=== PATIENT | male | born 1955 | race Caucasian/White ===

== ENCOUNTER 2016-10-10 09:05 | Day surgery (SDC) | payer MEDICAID ==
[~2016-10-10] VITALS: Ht 152.4 cm; Wt 73.5 kg
[~2016-10-10 09:05] MED LIST: BALANCED SALT IRRIG SOLN COMB1 500ML OP ONE
[2016-10-10] MEDS ORDERED: HYALURONATE SODIUM 14 MG/ML 0.85ML SYRINGE IO ONE ×2 (10:05→14:16)
[2016-10-10 10:29] LABS: CALCIUM 8.6 mg/dL (8.5-10.1)
[2016-10-10] MEDS ORDERED: SODIUM CHLORIDE 0.9% 1,000 ML IV SCH ×2 (10:45→14:12)
[2016-10-10] MEDS ORDERED: CYCLOPENTOLATE HCL 1% OPHTH DROPS 2ML RIGHTEYE ONE (11:20)
[2016-10-10] MEDS ORDERED: PHENYLEPHRINE HCL 10% OPHTH DROPS 5ML RIGHTEYE ONE (11:20)
[2016-10-10] MEDS ORDERED: TROPICAMIDE 1% OPHTH DROPS 15ML RIGHTEYE ONE (11:20)
[2016-10-10] MEDS ORDERED: METF10002 PO (11:57)
[2016-10-10] MEDS ORDERED: HYDR25TA PO (11:57)
[2016-10-10] MEDS ORDERED: ASPI-1035 PO (11:57)
[2016-10-10] MEDS ORDERED: FURO-152 PO (11:57)
[2016-10-10] MEDS ORDERED: GEMF600T3 PO (11:57)
[2016-10-10] MEDS ORDERED: INSLAN SQ (11:57)
[2016-10-10] MEDS ORDERED: LIDOCAINE HCL/PF 2% 20 MG/ML 10ML VIAL ONE (12:59)
[2016-10-10] MEDS ORDERED: PREDNISOLONE ACETATE 1% OPHTH DROPS 1ML ONE (12:59)
[2016-10-10] MEDS ORDERED: CIPROFLOXACIN 0.3% OPHTH SOLN 2.5ML ONE (12:59)
[2016-10-10] MEDS ORDERED: MIDAZOLAM HCL 2 MG/2 ML VIAL ONE (13:56)
[2016-10-10] MEDS ORDERED: FENTANYL CITRATE/PF 50MCG/ML 2ML VIAL ONE (13:57)
[2016-10-10] MEDS ORDERED: PROPOFOL 200MG/20ML VIAL IV ONE (13:58)
[2016-10-10] MEDS ORDERED: LIDOCAINE HCL 1% 20ML VIAL (Pyxis) INJ ONE (13:58)
[2016-10-10] MEDS ORDERED: ONDANSETRON HCL 4MG/2ML VIAL ONE (14:05)
[2016-10-10] MEDS ORDERED: MORPHINE SULFATE 2 MG/ML CPJ (NOT FOR IM USE) IV PRN (14:15)
[2016-10-10] MEDS ORDERED: ONDANSETRON HCL 4MG/2ML VIAL IV PRN (14:15)
== END 2016-10-10 15:45 | disposition home or self-care (01) ==
LOC: OR 09:05
PROVIDERS: ATTEND Ophthalmology
DX: H25.9 Unspecified age-related cataract (principal); I10 Essential (primary) hypertension; E11.9 Type 2 diabetes mellitus without complications; D64.89 Other specified anemias; E78.5 Hyperlipidemia, unspecified; E66.9 Obesity, unspecified
CPT/HCPCS: 36415; 66984; 80048; 82962; J2250; J2405; J3010; J3490; J7030; J2704

== ENCOUNTER 2016-10-24 09:01 | Day surgery (SDC) | payer MEDICAID ==
[~2016-10-24] VITALS: Ht 152.4 cm; Wt 73.5 kg
[~2016-10-24 09:01] MED LIST changes: +ASPI-1159 PO; -BALANCED SALT IRRIG SOLN COMB1 500ML OP ONE; +FURO-152 PO; +GEMF600T3 PO; +HYDR25TA PO; +INSLAN SQ; +METF10002 PO
[2016-10-24] MEDS ORDERED: FENTANYL CITRATE/PF 50MCG/ML 2ML VIAL IV PRN (10:15)
[2016-10-24] MEDS ORDERED: ONDANSETRON HCL 4MG/2ML VIAL IV PRN (10:15)
[2016-10-24] MEDS ORDERED: TROPICAMIDE 1% OPHTH DROPS 15ML RIGHTEYE SCH (10:45)
[2016-10-24] MEDS ORDERED: CYCLOPENTOLATE HCL 1% OPHTH DROPS 2ML RIGHTEYE SCH (10:45)
[2016-10-24] MEDS ORDERED: PHENYLEPHRINE HCL 10% OPHTH DROPS 5ML RIGHTEYE SCH (10:45)
[2016-10-24] MEDS ORDERED: SODIUM CHLORIDE 0.9% 1,000 ML IV SCH (11:45)
[2016-10-24] MEDS ORDERED: LIDOCAINE HCL 1% 20ML VIAL (Pyxis) INJ ONE (12:23)
[2016-10-24] MEDS ORDERED: PROPOFOL 200MG/20ML VIAL IV ONE (12:23)
[2016-10-24] MEDS ORDERED: HYALURONATE SODIUM 14 MG/ML 0.85ML SYRINGE IO ONE ×2 (12:56→13:22)
[2016-10-24] MEDS ORDERED: HYDRALAZINE 20MG/ML VIAL ONE (13:38)
[2016-10-24] MEDS ORDERED: NEO/POLYMYX B SULF/DEXAMETH OPHTH OINT 3.5GM ONE (14:30)
[2016-10-24] MEDS ORDERED: ACETYLCHOLINE CHLORIDE INTRAOCULAR SOLUTION 1:100 ELECTROLYTE DILUENT IO ONE (14:30)
[2016-10-24] MEDS ORDERED: BALANCED SALT IRRIG SOLN 15ML ONE (14:30)
[2016-10-24] MEDS ORDERED: LIDOCAINE HCL/PF 2% 20 MG/ML 10ML VIAL ONE (14:30)
[2016-10-24] MEDS ORDERED: BUPIVACAINE HCL/PF 0.75% (7.5MG/ML) 10ML ONE (14:30)
[2016-10-24] MEDS ORDERED: TETRACAINE 0.5% OPHTH DROPS 4ML ONE (14:30)
[2016-10-24] MEDS ORDERED: PREDNISOLONE ACETATE 1% OPHTH DROPS 1ML ONE (14:30)
[2016-10-24] MEDS ORDERED: CIPROFLOXACIN 0.3% OPHTH SOLN 2.5ML ONE (14:30)
== END 2016-10-24 15:20 ==
LOC: OR 09:01
PROVIDERS: ATTEND Ophthalmology
DX: H52.31 Anisometropia (principal); H59.029 Cataract (lens) fragments in eye following cataract surgery, unspecified eye; E11.22 Type 2 diabetes mellitus with diabetic chronic kidney disease; I12.9 Hypertensive chronic kidney disease with stage 1 through stage 4 chronic kidney disease, or unspecified chronic kidney disease; N18.9 Chronic kidney disease, unspecified
CPT/HCPCS: 66850; 66986; 82962; J0360; J3490; J7030; V2632; J2704